=== PATIENT | female | born 1975 | race African-American/Black ===

== ENCOUNTER 2018-09-14 10:02 | Emergency (ER) | payer MEDICARE, MEDICAID ==
[~2018-09-14] VITALS: Ht 165.1 cm; Wt 87.0 kg
[2018-09-14 11:38] VITALS: BP 156/89
== END 2018-09-14 11:40 | disposition home or self-care (01) ==
LOC: ER 10:48
DX: R56.9 Unspecified convulsions (principal); F17.200 Nicotine dependence, unspecified, uncomplicated; Z88.0 Allergy status to penicillin
CPT/HCPCS: 99283